=== PATIENT | female | born 1950 | race Caucasian/White ===

== ENCOUNTER 2020-07-16 11:24 | Inpatient (IN) | payer MEDICARE ==
[~2020-07-16 11:24] MED LIST: Iopamidol-370 76% 500 ML 1 ML ONE
[2020-07-16] MEDS ORDERED: Metoprolol Tartrate 5 MG/5 ML VIAL ONE (12:28)
[2020-07-16 13:02] LABS: #Basophils 0.1 thou/uL (0.0-0.2); #Eosinphils 0.1 thou/uL (0.0-0.7); #Lymphocytes 0.9 thou/uL (1.20-3.40); #Monocytes 0.9 thou/uL (0.11-0.59); #Neutrophils 10.4 thou/uL (1.40-6.50); %Basophils 0.6 % (0.0-1.0); %Eosinophils 0.5 % (0.0-10.0); %Lymphocytes 7.4 % (21.0-51.0); %Monocytes 7.2 % (0.0-10.0); %Neutrophils 84.2 % (42.0-75.0); Hemoglobin 7.7 g/dL (12.0-16.0); Mean Corpuscular HGB CONC 32.8 g/dL (32.0-36.0); Mean Corpuscular Hemoglobin 33.1 pg (27.0-31.0); Mean Platelet Volume 7.8 fL (7.4-10.4); Platelet Count 494 thou/uL (130-400); RBC Distribution Width 15.6 % (11.5-14.5); Red Blood Cell (RBC) Count 2.32 mill/uL (4.20-5.40); White Blood Cell (WBC) Count 12.3 thou/uL (4.8-10.8)
[2020-07-16 13:22] LABS: ALT (SGPT) 22 U/L (8-55); AST (SGOT) 53 U/L (5-34); Albumin 2.6 g/dL (3.4-4.8); Alkaline Phosphatase 225 U/L (40-110); Anion Gap 10 mmol/L (10-20); BUN (Urea Nitrogen) 12 mg/dL (9.8-20.1); Bilirubin, Total 0.4 mg/dL (0.2-1.2); Calc. Creatinine Clearance 0 mL/min (70-130); Calcium 8.3 mg/dL (7.8-10.44); Carbon Dioxide 31 mmol/L (23-31); Chloride 101 mmol/L (98-107); Globulin 2.1 g/dL (2.4-3.5); Glucose 110 mg/dL (80-115); Potassium 3.4 mmol/L (3.5-5.1); Protein, Total 4.7 g/dL (5.8-8.1); Sodium 139 mmol/L (136-145)
[2020-07-16 13:45] LABS: CKMB 1.9 ng/mL (0-6.6)
[2020-07-16] MEDS ORDERED: Aspirin Chewable 81 MG TAB ONE (14:16)
[2020-07-16] MEDS ORDERED: Furosemide 40 MG/4 ML VIAL ONE (14:16)
[2020-07-16] MEDS ORDERED: Potassium Chloride 20 MEQ TAB ONE (14:16)
[2020-07-16] MEDS ORDERED: Acetaminophen 325 MG TAB PO PRN (15:06)
[2020-07-16] MEDS ORDERED: Acetaminophen 650 MG Suppository PR PRN (15:06)
[2020-07-16] MEDS ORDERED: Ondansetron PF 4 MG/2 ML Vial IVP PRN (15:06)
[2020-07-16] MEDS ORDERED: Ondansetron ODT 4 MG TAB PO PRN (15:06)
[2020-07-16] MEDS ORDERED: Furosemide 40 MG/4 ML VIAL SLOW IVP SCH (15:15)
[2020-07-16] MEDS ORDERED: Metoprolol Tartrate 50 MG TAB ONE (15:20)
[2020-07-16 16:29] LABS: Hemoglobin 9.6 g/dL (12.0-16.0)
[2020-07-16 16:45] VITALS: BMI 21.9
[2020-07-16 16:46] LABS: Lactic Acid 1.4 mmol/L (0.5-2.2)
[2020-07-16] MEDS: Carvedilol 6.25 MG TAB PO SCH (17:14)
[2020-07-16] MEDS ORDERED: Amlodipine 5 MG TAB PO SCH (17:15)
[2020-07-16 19:31] LABS: Troponin I 0.038 ng/mL (< 0.028)
[2020-07-16] MEDS ORDERED: Heparin 5,000 UNITS/ML VIAL SC SCH (21:00)
[2020-07-17] MEDS: hydrALAZINE 20 MG/ML VIAL SLOW IVP PRN ×2 (01:00→12:25)
[2020-07-17 05:12] LABS: #Basophils 0.1 thou/uL (0.0-0.2); #Eosinphils 0.1 thou/uL (0.0-0.7); #Lymphocytes 1.4 thou/uL (1.20-3.40); #Neutrophils 10.8 thou/uL (1.40-6.50); %Basophils 0.5 % (0.0-1.0); %Lymphocytes 10.3 % (21.0-51.0); %Monocytes 7.2 % (0.0-10.0); %Neutrophils 81.1 % (42.0-75.0); Mean Corpuscular HGB CONC 32.3 g/dL (32.0-36.0); Mean Corpuscular Hemoglobin 32.2 pg (27.0-31.0); Mean Corpuscular Volume 99.7 fL (78.0-98.0); Mean Platelet Volume 7.7 fL (7.4-10.4); Platelet Count 493 thou/uL (130-400); RBC Distribution Width 15.6 % (11.5-14.5); Red Blood Cell (RBC) Count 2.47 mill/uL (4.20-5.40); White Blood Cell (WBC) Count 13.3 thou/uL (4.8-10.8)
[2020-07-17 05:19] LABS: Anion Gap 10 mmol/L (10-20); BUN (Urea Nitrogen) 11 mg/dL (9.8-20.1); Calc. Creatinine Clearance 87 mL/min (70-130); Calcium 8.4 mg/dL (7.8-10.44); Carbon Dioxide 31 mmol/L (23-31); Chloride 98 mmol/L (98-107); Glucose 104 mg/dL (80-115); Potassium 3.1 mmol/L (3.5-5.1); Sodium 136 mmol/L (136-145)
[2020-07-17] MEDS ORDERED: Electrolyte Replacement Protocol 1 EACH FS PRN (05:37)
[2020-07-17] MEDS ORDERED: Potassium Chloride 20 MEQ TAB PO SCH (05:45)
[2020-07-17] MEDS: Furosemide 100 MG/10 ML VIAL SLOW IVP SCH ×2 (06:36→14:12)
[2020-07-17] MEDS ORDERED: Albuterol Sulfate 2.5 mg/3 ml Neb NEB PRN (07:33)
[2020-07-17] MEDS ORDERED: Non-Formulary Item 1 EACH (Albuterol Sulfate [Proventil Hfa] 200 PUFF Inh) INH PRN (07:33)
[2020-07-17] MEDS ORDERED: Albuterol 200 PUFF (6.7GM INHALER) INH PRN (07:38)
[2020-07-17] MEDS ORDERED: Aspirin Chewable 81 MG TAB PO SCH (09:00)
[2020-07-17] MEDS ORDERED: Amoxicillin/Potassium Clav 875 MG TAB PO SCH ×2 (09:00)
[2020-07-17] MEDS ORDERED: Amlodipine 5 MG TAB PO SCH (09:00)
[2020-07-17] MEDS ORDERED: Non-Formulary Item 1 EACH (Lisinopril [Zestril] 40 MG Tablet) PO SCH (09:00)
[2020-07-17] MEDS: Carvedilol 6.25 MG TAB PO SCH ×2 (09:07→17:03)
[2020-07-17] MEDS: Atorvastatin Calcium 20 MG TAB PO SCH (09:08)
[2020-07-17] MEDS: Lisinopril 20 MG TAB PO SCH (09:08)
[2020-07-17] MEDS: Aspirin 81 mg Enteric Coated Tablet PO SCH (09:08)
[2020-07-17] MEDS: predniSONE 5 MG TAB PO SCH (09:08)
[2020-07-17 10:42] LABS: Hemoglobin 9.4 g/dL (12.0-16.0)
[2020-07-17] MEDS ORDERED: Magnesium Sulfate 4 GM in Sodium Chloride 0.9% 250 ML 250 ML IVPB SCH (11:00)
[2020-07-17] MEDS ORDERED: FLU VACC QS2020-21(65YR UP)/PF 240 MCG/0.7 ML SYRINGE IM ONE (17:00)
[2020-07-17 21:30] LABS: Hemoglobin 8.5 g/dL (12.0-16.0)
[2020-07-18 05:00] LABS: #Basophils 0.1 thou/uL (0.0-0.2); #Eosinphils 0.2 thou/uL (0.0-0.7); #Lymphocytes 1.2 thou/uL (1.20-3.40); #Monocytes 1.3 thou/uL (0.11-0.59); #Neutrophils 10.4 thou/uL (1.40-6.50); %Basophils 0.5 % (0.0-1.0); %Eosinophils 1.5 % (0.0-10.0); %Monocytes 9.5 % (0.0-10.0); %Neutrophils 79.5 % (42.0-75.0); Hemoglobin 7.8 g/dL (12.0-16.0); Mean Corpuscular HGB CONC 32.2 g/dL (32.0-36.0); Mean Corpuscular Volume 99.2 fL (78.0-98.0); Mean Platelet Volume 8.1 fL (7.4-10.4); Platelet Count 482 thou/uL (130-400); RBC Distribution Width 15.2 % (11.5-14.5); Red Blood Cell (RBC) Count 2.45 mill/uL (4.20-5.40); White Blood Cell (WBC) Count 13.1 thou/uL (4.8-10.8)
[2020-07-18 05:21] LABS: Anion Gap 11 mmol/L (10-20); BUN (Urea Nitrogen) 13 mg/dL (9.8-20.1); Calc. Creatinine Clearance 76 mL/min (70-130); Calcium 8.5 mg/dL (7.8-10.44); Carbon Dioxide 32 mmol/L (23-31); Chloride 93 mmol/L (98-107); Glucose 112 mg/dL (80-115); Potassium 3.3 mmol/L (3.5-5.1); Sodium 133 mmol/L (136-145)
[2020-07-18] MEDS ORDERED: Potassium Chloride 20 MEQ TAB PO SCH (05:30)
[2020-07-18] MEDS ORDERED: Potassium Bicarbonate/Cit Ac 20 MEQ TAB PO SCH (05:45)
[2020-07-18] MEDS: Furosemide 100 MG/10 ML VIAL SLOW IVP SCH ×2 (06:50→13:28)
[2020-07-18] MEDS: Aspirin 81 mg Enteric Coated Tablet PO SCH (08:32)
[2020-07-18] MEDS: Enoxaparin Sodium 40 MG/0.4 ML SYRINGE SC SCH (08:32)
[2020-07-18] MEDS: Atorvastatin Calcium 20 MG TAB PO SCH (08:32)
[2020-07-18] MEDS: Carvedilol 6.25 MG TAB PO SCH (08:32)
[2020-07-18] MEDS: predniSONE 5 MG TAB PO SCH (08:32)
[2020-07-18] MEDS: Lisinopril 20 MG TAB PO SCH (08:32)
[2020-07-18] MEDS ORDERED: cloNIDine 0.1 MG TAB PO SCH (09:15)
[2020-07-18 14:42] LABS: Iron 20 ug/dL (50-170); Iron Binding Capacity, Total 166 mcg/dL (265-497)
[2020-07-18] MEDS: Carvedilol 3.125 MG TAB PO SCH (16:39)
[2020-07-18] MEDS: cloNIDine 0.1 MG TAB PO SCH ×2 (20:23→20:25)
[2020-07-19 05:07] LABS: #Eosinphils 0.2 thou/uL (0.0-0.7); #Lymphocytes 1.5 thou/uL (1.20-3.40); #Monocytes 1.3 thou/uL (0.11-0.59); %Basophils 0.2 % (0.0-1.0); %Eosinophils 1.9 % (0.0-10.0); %Lymphocytes 13.3 % (21.0-51.0); %Monocytes 11.5 % (0.0-10.0); %Neutrophils 73.1 % (42.0-75.0); Mean Corpuscular HGB CONC 31.7 g/dL (32.0-36.0); Mean Corpuscular Hemoglobin 31.9 pg (27.0-31.0); Mean Platelet Volume 8.3 fL (7.4-10.4); Platelet Count 471 thou/uL (130-400); RBC Distribution Width 15.1 % (11.5-14.5); Red Blood Cell (RBC) Count 2.51 mill/uL (4.20-5.40)
[2020-07-19 05:28] LABS: Anion Gap 10 mmol/L (10-20); BUN (Urea Nitrogen) 15 mg/dL (9.8-20.1); Calc. Creatinine Clearance 76 mL/min (70-130); Calcium 8.5 mg/dL (7.8-10.44); Carbon Dioxide 35 mmol/L (23-31); Chloride 93 mmol/L (98-107); Glucose 105 mg/dL (80-115); Potassium 3.3 mmol/L (3.5-5.1); Sodium 135 mmol/L (136-145)
[2020-07-19] MEDS: Furosemide 100 MG/10 ML VIAL SLOW IVP SCH (06:06)
[2020-07-19] MEDS ORDERED: Furosemide 20 MG TAB PO SCH (09:00)
[2020-07-19] MEDS: Enoxaparin Sodium 40 MG/0.4 ML SYRINGE SC SCH (09:08)
[2020-07-19] MEDS: Lisinopril 20 MG TAB PO SCH (09:09)
[2020-07-19] MEDS: Aspirin 81 mg Enteric Coated Tablet PO SCH (09:09)
[2020-07-19] MEDS: predniSONE 5 MG TAB PO SCH (09:09)
[2020-07-19] MEDS: Atorvastatin Calcium 20 MG TAB PO SCH (09:09)
[2020-07-19] MEDS: cloNIDine 0.1 MG TAB PO SCH ×2 (09:13→20:31)
[2020-07-19] MEDS: Carvedilol 3.125 MG TAB PO SCH ×2 (09:13→17:38)
[2020-07-19] MEDS ORDERED: Potassium Chloride 20 MEQ TAB PO SCH (10:00)
[2020-07-19] MEDS ORDERED: Iron, Sodium Ferric Gluconate 250 MG in Sodium Chloride 0.9% 100 ML IVPB SCH (12:00)
[2020-07-19] MEDS: Furosemide 40 MG/4 ML VIAL SLOW IVP SCH (12:33)
[2020-07-20 05:41] LABS: #Basophils 0.1 thou/uL (0.0-0.2); #Eosinphils 0.3 thou/uL (0.0-0.7); #Lymphocytes 1.5 thou/uL (1.20-3.40); #Monocytes 1.1 thou/uL (0.11-0.59); #Neutrophils 7.4 thou/uL (1.40-6.50); %Basophils 0.6 % (0.0-1.0); %Eosinophils 2.6 % (0.0-10.0); %Lymphocytes 14.6 % (21.0-51.0); %Monocytes 10.8 % (0.0-10.0); %Neutrophils 71.6 % (42.0-75.0); Hemoglobin 7.9 g/dL (12.0-16.0); Mean Corpuscular HGB CONC 31.9 g/dL (32.0-36.0); Mean Corpuscular Hemoglobin 32.2 pg (27.0-31.0); Mean Platelet Volume 8.3 fL (7.4-10.4); Platelet Count 467 thou/uL (130-400); RBC Distribution Width 15.1 % (11.5-14.5); Red Blood Cell (RBC) Count 2.45 mill/uL (4.20-5.40); White Blood Cell (WBC) Count 10.4 thou/uL (4.8-10.8)
[2020-07-20 05:58] LABS: Anion Gap 9 mmol/L (10-20); BUN (Urea Nitrogen) 14 mg/dL (9.8-20.1); Calc. Creatinine Clearance 75 mL/min (70-130); Calcium 8.4 mg/dL (7.8-10.44); Carbon Dioxide 34 mmol/L (23-31); Chloride 94 mmol/L (98-107); Glucose 98 mg/dL (80-115); Potassium 3.5 mmol/L (3.5-5.1); Sodium 133 mmol/L (136-145)
[2020-07-20] MEDS: Furosemide 40 MG/4 ML VIAL SLOW IVP SCH (06:29)
[2020-07-20] MEDS ORDERED: Potassium Chloride 20 MEQ TAB PO SCH (06:30)
[2020-07-20] MEDS: Carvedilol 3.125 MG TAB PO SCH (08:23)
[2020-07-20] MEDS: predniSONE 5 MG TAB PO SCH (10:28)
[2020-07-20] MEDS: cloNIDine 0.1 MG TAB PO SCH (10:28)
[2020-07-20] MEDS: Atorvastatin Calcium 20 MG TAB PO SCH (10:28)
[2020-07-20] MEDS: Lisinopril 20 MG TAB PO SCH (10:29)
[2020-07-20] MEDS: Aspirin 81 mg Enteric Coated Tablet PO SCH (10:29)
[2020-07-20] MEDS: Enoxaparin Sodium 40 MG/0.4 ML SYRINGE SC SCH (10:30)
[2020-07-20 11:43] VITALS: BP 159/81; TEMP 97.9
[2020-07-21] MEDS ORDERED: Furosemide 40 MG TAB PO SCH (07:30)
== END 2020-07-20 13:50 | disposition home health service (06) | DRG 280 ==
LOC: ERS 11:24 → 2SE 14:55
PROVIDERS: ADMIT Internal Medicine; ATTEND Internal Medicine
DX: I11.0 Hypertensive heart disease with heart failure (principal); I50.31 Acute diastolic (congestive) heart failure; I21.A1 Myocardial infarction type 2; J96.01 Acute respiratory failure with hypoxia; I16.1 Hypertensive emergency; D64.9 Anemia, unspecified; J43.9 Emphysema, unspecified; E87.6 Hypokalemia; E83.42 Hypomagnesemia; E78.5 Hyperlipidemia, unspecified; R93.5 Abnormal findings on diagnostic imaging of other abdominal regions, including retroperitoneum; Z93.3 Colostomy status; Z87.891 Personal history of nicotine dependence; Z90.49 Acquired absence of other specified parts of digestive tract
CPT/HCPCS: 36415; 71045; 71046; 71275; 74177; 80048; 80053; 82553; 82607; 83540; 83550; 83605; 83735; 83880; 84443; 84484; 85025; 86850; 86900; 86901; 93005; 93306; 93798; 94640; 96374; 96375; J0360; J1650; J1940; J2916; J3475; J3490; J7050; J7512; J7620; Q9967

== ENCOUNTER 2022-03-21 12:31 | Emergency (ER) | payer MEDICARE, OTHER ==
[2022-03-21 13:03] LABS: #Monocytes 0.7 thou/uL (0.11-0.59); #Neutrophils 8.6 thou/uL (1.40-6.50); %Basophils 0.4 % (0.0-1.0); %Lymphocytes 17.3 % (21.0-51.0); %Neutrophils 76.2 % (42.0-75.0); Hemoglobin 14.7 g/dL (12.0-16.0); Mean Corpuscular HGB CONC 32.7 g/dL (32.0-36.0); Mean Corpuscular Volume 94.7 fl (78.0-98.0); Mean Platelet Volume 8.5 fL (7.4-10.4); Platelet Count 333 10x3/uL (130-400); RBC Distribution Width 13.1 % (11.5-14.5); Red Blood Cell (RBC) Count 4.76 mill/uL (4.20-5.40); White Blood Cell (WBC) Count 11.3 10x3/uL (4.8-10.8)
[2022-03-21 13:12] LABS: ALT (SGPT) 22 U/L (8-55); AST (SGOT) 28 U/L (5-34); Albumin 4.5 g/dL (3.4-4.8); Alkaline Phosphatase 109 U/L (40-110); Anion Gap 10 mmol/L (10-20); BUN (Urea Nitrogen) 15 mg/dL (9.8-20.1); Bilirubin, Total 0.8 mg/dL (0.2-1.2); Calc. Creatinine Clearance 0 mL/min (70-130); Carbon Dioxide 28 mmol/L (23-31); Estimated GFR 93; Glucose 117 mg/dL (83-110); Potassium 3.8 mmol/L (3.5-5.1); Protein, Total 7.5 g/dL (5.8-8.1); Sodium 135 mmol/L (136-145)
[2022-03-21 13:23] LABS: Chloride 101 mmol/L (98-107)
[2022-03-21] MEDS ORDERED: Ketorolac Tromethamine 30 MG/ML VIAL ONE (14:03)
[2022-03-21] MEDS ORDERED: cloNIDine 0.1 MG TAB ONE (15:22)
[2022-03-21] MEDS ORDERED: hydrALAZINE 20 MG/ML VIAL ONE (15:22)
== END 2022-03-21 15:44 | disposition home or self-care (01) ==
LOC: ERS 12:31
DX: J01.90 Acute sinusitis, unspecified (principal); R10.816 Epigastric abdominal tenderness; I10 Essential (primary) hypertension; J44.9 Chronic obstructive pulmonary disease, unspecified; F17.210 Nicotine dependence, cigarettes, uncomplicated; Z79.899 Other long term (current) drug therapy
CPT/HCPCS: 36415; 70450; 74177; 80053; 83690; 84484; 85025; 93005; 94760; 96374; 96375; J0360; J1885; Q9967

== ENCOUNTER 2024-04-13 16:25 | Emergency (ER) | payer MEDICARE, OTHER ==
[2024-04-13 17:04] LABS: #Basophils 0.04 10x3/uL (0.0-0.2); %Basophils 0.4 % (0.0-1.0); %Eosinophils 0.4 % (0.0-10.0); %Lymphocytes 18.5 % (21.0-51.0); %Monocytes 4.4 % (0.0-10.0); Hematocrit 42.9 % (36.0-47.0); Mean Corpuscular HGB CONC 32.6 g/dL (32.0-36.0); Mean Corpuscular Hemoglobin 29.5 pg (27.0-31.0); Mean Corpuscular Volume 90.5 fL (78.0-98.0); Mean Platelet Volume 12.2 fL (7.4-10.4); Platelet Count 202 10x3/uL (130-400); RBC Distribution Width 17.8 % (11.5-14.5); Red Blood Cell (RBC) Count 4.74 mill/uL (4.20-5.40)
[2024-04-13 17:30] LABS: ALT (SGPT) 22 U/L (8-55); AST (SGOT) 30 U/L (5-34); Albumin 3.6 g/dL (3.4-4.8); Alkaline Phosphatase 119 U/L (40-110); Anion Gap 11 mmol/L (10-20); BUN (Urea Nitrogen) 16 mg/dL (9.8-20.1); Bilirubin, Total 0.6 mg/dL (0.2-1.2); Calc. Creatinine Clearance 0 mL/min (70-130); Calcium 9.8 mg/dL (7.8-10.44); Carbon Dioxide 31 mmol/L (23-31); Chloride 100 mmol/L (98-107); Estimated GFR 93; Globulin 3.1 g/dL (2.4-3.5); Glucose 109 mg/dL (83-110); Lipase 12 U/L (8-78); Potassium 4.3 mmol/L (3.5-5.1); Protein, Total 6.7 g/dL (5.8-8.1); Sodium 138 mmol/L (136-145)
[2024-04-13 17:36] LABS: Troponin I 0.018 ng/mL (< 0.028)
[2024-04-13 18:16] LABS: Bacteria/HPF None Seen HPF (None Seen); Bilirubin Negative (Negative); Blood, Urine Negative (Negative); CAUTI Indications for Culture Fever or rigors; Clarity Clear (Clear); Glucose, Urine (Dipstick) Normal (Negative); Ketone, Urine Negative (Negative); Leukocyte Negative Leu/uL (Negative); Nitrite Negative (Negative); Protein, Urine (Dipstick) Negative (Neg-Trace); RBC/HPF 0-3 HPF (0-3); Squamous Epithelial None Seen HPF (0-3); Urobilinogen Normal mg/dL (Less than 2); WBC/HPF 0-3 HPF (0-3)
[2024-04-13 18:18] LABS: Urine Culture Reflex No No
[2024-04-13 18:19] LABS: Prothrombin Time 12.8 sec (12.0-14.7)
== END 2024-04-13 19:34 | disposition home or self-care (01) ==
LOC: ERS 16:25
DX: K62.5 Hemorrhage of anus and rectum (principal); I10 Essential (primary) hypertension; J44.9 Chronic obstructive pulmonary disease, unspecified; F17.210 Nicotine dependence, cigarettes, uncomplicated; Z79.51 Long term (current) use of inhaled steroids; Z79.899 Other long term (current) drug therapy
CPT/HCPCS: 36415; 74174; 80053; 81001; 83605; 83690; 83880; 84484; 85025; 85610; 85730; 93005